=== PATIENT | female | born 1995 | race Caucasian/White ===

== ENCOUNTER → 2016-12-06 13:07 | Emergency (ER) | payer BC ==
[2016-12-06 13:25] VITALS: BP 106/61
--- NOTE | 2016-12-06 14:42 | ED ---
Skin Complaint - HPI Summary HPI Summary: 21F presents with abscess on nose for 4 days. She was seen at urgent care and placed on clindamycin. She states the area had gotten worst. She denies any fever. She states there has been some swelling around lower part of eye but does not extend along entire rim of eye. She denies any pain with eye movement. She has history of acne and takes topical meds for it. - History of Current Complaint Chief Complaint: EDRashSkinAbscess Time Seen by Provider: 12/06/16 14:03 Stated Complaint: POSSIBLE INFECTION ON NOSE Pain Intensity: 4 - Allergy/Home Medications Allergies/Adverse Reactions: Allergies Allergy/AdvReac Type Severity Reaction Status Date / Time No Known Allergies Allergy Verified 12/06/16 13:21 PMH/Surg Hx/FS Hx/Imm Hx Endocrine/Hematology History: Denies: Hx Anticoagulant Therapy EENT History: Reports: Other - acne Infectious Disease History: No Infectious Disease History: Denies: Traveled Outside the [place] in Last 30 Days - Family History Known Family History: Negative: Hypertension - Social History Alcohol Use: Occasionally Substance Use Type: Reports: Marijuana Smoking Status (MU): Never Smoked Tobacco Review of Systems Negative: Fever Negative: Chest Pain Negative: Shortness Of Breath Positive: Other - abscess to right side of nose All Other Systems Reviewed And Are Negative: Yes Physical Exam Triage Information Reviewed: Yes Vital Signs On Initial Exam: Initial Vitals Temp Pulse Resp BP Pulse Ox 98.4 F 75 18 106/61 100 12/06/16 13:21 12/06/16 13:21 12/06/16 13:21 12/06/16 13:21 12/06/16 13:21 Vital Signs Reviewed: Yes Appearance: Positive: Well-Appearing Skin: Positive: Other - small abscess till right side of bridge of nose Head/Face: Positive: Normal Head/Face Inspection Eyes: Positive: Normal, EOMI, SALLY, Conjunctiva Clear, Other: - no swelling noted to eyes, no pain with EOMI ENT: Positive: Normal ENT inspection, Pharynx normal, TMs normal Respiratory/Lung Sounds: Positive: Clear to Auscultation, Breath Sounds Present Cardiovascular: Positive: Normal, RRR - [place] Coma Scale Coma Scale Total: 15 Procedures - Incision and Drainage Site: nares Anesthesia: Topical Instrument(s): Scalpel, Needle Diagnostics - Vital Signs Vital Signs Temp Pulse Resp BP Pulse Ox 12/06/16 13:21 98.4 F 75 18 106/61 100 - Laboratory Lab Statement: Any lab studies that have been ordered have been reviewed, and results considered in the medical decision making process. Course/Dx - Course Course Of Treatment: 21F presents with abscess to nose. is on clindamycin. says has been swelling around eye but no swelling on exam and no pain with EOMI so do not suspect periorbital cellulitis. I&D area successfully with small amount of pus. told to continue clindamycin and warns signs to return to ED for. patient understands and agrees with plan - Differential Diagnoses - Skin Complaint Differential Diagnoses: Abscess, Cellulitis, Contact Dermatitis - Diagnoses Provider Diagnoses: Facial abscess Discharge - Discharge Plan Condition: Good Disposition: HOME Patient Education Materials: Abscess (ED) Referrals: [facility], [Primary Care Provider] - Additional Instructions: Continue antibiotic as prescribed Place warm compresses on area Return to ED if develop inc swelling around eye, pain with EOM, fever, spreading redness or any new or worsening symptoms
== END | disposition home or self-care (01) ==
LOC: ED 13:07
DX: J34.0 Abscess, furuncle and carbuncle of nose (principal)
CPT/HCPCS: 10060; 99281